=== PATIENT | female | born 1990 | race Caucasian/White ===

== ENCOUNTER 2019-01-31 15:55 | Emergency (ER) | payer MEDICAID, OTHER ==
--- NOTE | 2019-01-31 16:28 | EDM.PDOC ---
ED HPI GENERAL MEDICAL PROBLEM - General Chief Complaint: Lower Extremity Injury/Pain Stated Complaint: FOOT INJURY Time Seen by Provider: 01/31/19 16:22 - History of Present Illness INITIAL COMMENTS - FREE TEXT/NARRATIVE: HISTORY AND PHYSICAL: History of present illness: patient is a 28-year-old white female presents concern of acute left ankle and foot injury that occurred several days prior that was reinjured when she is walking her dog she denies other concern or trauma Review of systems: As per history of present illness and below otherwise all systems reviewed and negative. Past medical history: As per history of present illness and as reviewed below otherwise noncontributory. Surgical history: As per history of present illness and as reviewed below otherwise noncontributory. Social history: No reported history of drug or alcohol abuse. Family history: As per history of present illness and as reviewed below otherwise noncontributory. Physical exam: HEENT: Atraumatic, normocephalic, pupils reactive, negative for conjunctival pallor or scleral icterus, mucous membranes moist, throat clear, neck supple, nontender, trachea midline. Lungs: Clear to auscultation, breath sounds equal bilaterally, chest nontender. Heart: S1S2, regular, negative for clicks, rubs, or JVD. Abdomen: Soft, nondistended, nontender. Negative for masses or hepatosplenomegaly. Negative for costovertebral tenderness. Pelvis: Stable nontender. Genitourinary: Deferred. Rectal: Deferred. Extremities:left foot and ankle some mild tenderness over the dorsal lateral aspect of her proximal foot Achilles tendon is intact with no crepitation gross deformity Musson neurovascular exam is unremarkable there's no proximal fibula tenderness. Neuro: Awake, alert, oriented. Cranial nerves II through XII unremarkable. Cerebellum unremarkable. Motor and sensory unremarkable throughout. Exam nonfocal. Diagnostics: x-ray left foot/ankle Therapeutics: Farzad wrap crutches Impression: #1 acute left ankle/foot injury Definitive disposition and diagnosis as appropriate pending reevaluation and review of above. Review of Systems - Review of Systems Review Of Systems: Comprehensive ROS is negative, except as noted in HPI. ED EXAM, GENERAL - Physical Exam Exam: See Below (see dictation) Course - Orders/Labs/Meds Orders: Active Orders 24 hr Category Date Time Status Ankle Min 3V Lt [CR] Stat Exams 01/31/19 16:25 Ordered Foot 2V Lt [CR] Stat Exams 01/31/19 16:25 Ordered Departure - Departure Time of Disposition: 16:27 Disposition: Home, Self-Care 01 Condition: Good Clinical Impression: Ankle injury, Foot injury - Discharge Information Referrals: PCP,None [Primary Care Provider] - Additional Instructions: The following information is given to patients seen in the emergency department who are being discharged to home. This information is to outline your options for follow-up care. We provide all patients seen in our emergency department with a follow-up referral. The need for follow-up, as well as the timing and circumstances, are variable depending upon the specifics of your emergency department visit. If you don't have a primary care physician on staff, we will provide you with a referral. We always advise you to contact your personal physician following an emergency department visit to inform them of the circumstance of the visit and for follow-up with them and/or the need for any referrals to a consulting specialist. The emergency department will also refer you to a specialist when appropriate. This referral assures that you have the opportunity for followup care with a specialist. All of these measure are taken in an effort to provide you with optimal care, which includes your followup. Under all circumstances we always encourage you to contact your private physician who remains a resource for coordinating your care. When calling for followup care, please make the office aware that this follow-up is from your recent emergency room visit. If for any reason you are refused follow-up, please contact the [facility] emergency department at and asked to speak to the emergency department charge nurse. Farzad wrap crutches as directed Motrin/Tylenol follow up primary medical doctor return as needed as discussed - My Orders Last 24 Hours: My Active Orders 01/31/19 16:25 Ankle Min 3V Lt [CR] Stat Foot 2V Lt [CR] Stat - Assessment/Plan Last 24 Hours: My Active Orders 01/31/19 16:25 Ankle Min 3V Lt [CR] Stat Foot 2V Lt [CR] Stat
--- NOTE | 2019-01-31 17:08 | CR ---
INDICATION: Foot and ankle pain TECHNIQUE: Three views left ankle and two views left foot COMPARISON: None FINDINGS AND IMPRESSION: There is no acute fracture. No dislocation. The ankle mortise is intact. No suspicious bone lesion. Joint spaces are preserved. No soft tissue swelling at the ankle. There is soft tissue swelling at the dorsum of the metatarsal heads. No radiopaque foreign body. Dictated by Rolan Tao MD @ 01/31/2019 5:07:02 PM Dictated by: Rolan Tao MD @ 01/31/2019 17:07:06 (Electronically Signed)
--- NOTE | 2019-01-31 17:08 | CR ---
INDICATION: Foot and ankle pain TECHNIQUE: Three views left ankle and two views left foot COMPARISON: None FINDINGS AND IMPRESSION: There is no acute fracture. No dislocation. The ankle mortise is intact. No suspicious bone lesion. Joint spaces are preserved. No soft tissue swelling at the ankle. There is soft tissue swelling at the dorsum of the metatarsal heads. No radiopaque foreign body. Dictated by Rolan Tao MD @ 01/31/2019 5:07:28 PM Dictated by: Rolan Tao MD @ 01/31/2019 17:07:34 (Electronically Signed)
== END 2019-01-31 17:17 | disposition home or self-care (01) ==
LOC: MW.ED 15:55
DX: S99.912A Unspecified injury of left ankle, initial encounter (principal); X58.XXXA Exposure to other specified factors, initial encounter; Y93.K1 Activity, walking an animal
CPT/HCPCS: 73610-26-LT; 73610-LT; 73620-26-LT; 73620-LT; 99283-25

== ENCOUNTER 2023-11-08 16:50 | Emergency (ER) | payer MEDICAID ==
[2023-11-08] MEDS: Diphtheria,Pertussis(Acell),Tetanus Vaccine 0.5 ML Syringe IM ONE (18:18)
[2023-11-08] MEDS: Cephalexin 500 MG Cap PO ONE (18:21)
== END 2023-11-08 18:23 | disposition home or self-care (01) ==
LOC: MW.ED 16:50
DX: S80.851A Superficial foreign body, right lower leg, initial encounter (principal); Z23 Encounter for immunization; W45.8XXA Other foreign body or object entering through skin, initial encounter
CPT/HCPCS: 10120; 90471; 90715; 99283; A9270